=== PATIENT | female | born 1950 | race Caucasian/White ===

== ENCOUNTER → 2019-02-25 | Outpatient (CLI) | payer MEDICARE ==
--- NOTE | 2019-02-27 13:35 | P.ARTDOP ---
Arterial Doppler LOWER EXTREMITY ARTERIAL DOPPLER: DATE OF SERVICE: 02/25/2019 Reason for study: Bilateral leg pain. Doppler waveforms: Multiphasic bilaterally throughout. Pulse volume recording: []. Pressure gradients: None. Ankle-brachial indices: Greater than 1 bilaterally. Toe pressures: [] on the right, [] on the left Impression: Normal study.
== END | disposition home or self-care (01) ==
LOC: RADUSWWP 12:42
PROVIDERS: ATTEND Family Medicine
DX: M79.604 Pain in right leg (principal); M79.605 Pain in left leg; R29.898 Other symptoms and signs involving the musculoskeletal system
CPT/HCPCS: 93922

== ENCOUNTER 2020-02-11 11:04 | Emergency (ER) | payer MEDICARE, OTHER ==
[2020-02-11 11:11] VITALS: BP 160/84; PULSE 68; RESP 18; TEMP 97.6
--- NOTE | 2020-02-11 11:36 | ED ---
General Adult HPI - General Chief complaint: Extremity Injury, Lower Stated complaint: painful and swelling legs Source: patient, RN notes reviewed Mode of arrival: wheelchair Limitations: no limitations - History of Present Illness Initial comments: 69-year-old female presents to the emergency department for a chief complaint of right knee pain. Patient states that she fell about 4-6 weeks ago on the right knee and has had continued pain and swelling since that time. Patient states she called her doctor about this and they sent her to the emergency room. Patient is also complaining about bilateral leg pain. States this has been ongoing for over a year. States it worsens at night and she was given medicine for restless leg syndrome. States it also worsens when she goes for walks. Patient states she has an appointment in one week for this. Patient denies any difficulty walking. States that when she stands for prolonged times she has pain in both her legs. Denies back pain. Denies abdominal pain. Denies this worsening after her fall. Patient denies any bladder or bowel changes. Denies any numbness or tingling of the lower extremities. Denies weakness of the lower extremities, just complains of chronic pain. Patient has no other complaints at this time including shortness of breath, chest pain, abdominal pain, nausea or vomiting, headache, or visual changes. - Related Data Home Medications Medication Instructions Recorded Confirmed Citalopram Hydrobromide [CeleXA] 10 mg PO DAILY 02/07/15 02/07/15 Omeprazole [PriLOSEC] 20 mg PO AC-BID 02/07/15 02/07/15 Simvastatin [Zocor] 20 mg PO HS 02/07/15 02/07/15 rOPINIRole HCL 2.5 mg PO DAILY 02/07/15 02/07/15 Previous Rx's Medication Instructions Recorded Acetaminophen-Codeine 300-30mg 1 each PO Q4H PRN #20 tablet 02/07/15 [Tylenol w/codeine #3] Penicillin V Potassium [Pen Vee K] 500 mg PO QID #40 tab 02/07/15 Allergies Allergy/AdvReac Type Severity Reaction Status Date / Time No Known Allergies Allergy Verified 02/07/15 16:40 Review of Systems ROS Statement: Those systems with pertinent positive or pertinent negative responses have been documented in the HPI. ROS Other: All systems not noted in ROS Statement are negative. Past Medical History Past Medical History: Hyperlipidemia History of Any Multi-Drug Resistant Organisms: None Reported Past Surgical History: Adenoidectomy, Appendectomy, Tonsillectomy, Tubal Ligation Additional Past Surgical History / Comment(s): PMH; RESTLESS LEG SYNDROME. SURGICAL: OOPHERECTOMY Past Psychological History: Depression Smoking Status: Never smoker Past Alcohol Use History: None Reported Past Drug Use History: None Reported General Exam Limitations: no limitations General appearance: alert, in no apparent distress Head exam: Present: atraumatic, normocephalic, normal inspection Eye exam: Present: normal appearance, PERRL, EOMI. Absent: scleral icterus, conjunctival injection, periorbital swelling ENT exam: Present: normal exam, mucous membranes moist Neck exam: Present: normal inspection, full ROM. Absent: tenderness, meningismus, lymphadenopathy Respiratory exam: Present: normal lung sounds bilaterally. Absent: respiratory distress, wheezes, rales, rhonchi, stridor Cardiovascular Exam: Present: regular rate, normal rhythm, normal heart sounds. Absent: systolic murmur, diastolic murmur, rubs, gallop, clicks GI/Abdominal exam: Present: soft, normal bowel sounds. Absent: distended, tenderness, guarding, rebound, rigid Rectal exam: Present: normal inspection, normal rectal tone Extremities exam: Present: normal capillary refill (Capillary refill less than 2 seconds, DP pulse 2+ in the lower extremities bilaterally. Bilateral legs are warm to touch.), joint swelling (Patient has some mild edema of the anterior right knee. No edema elsewhere in the leg.), other (Strength is 5 out of 5 in lower extremities bilaterally.). Absent: calf tenderness Back exam: Present: full ROM. Absent: vertebral tenderness Neurological exam: Present: alert, oriented X3, normal gait (Patient ambulatory without difficulty). Absent: motor sensory deficit Psychiatric exam: Present: normal affect, normal mood Course Vital Signs 02/11/20 11:05 Temperature 97.6 F Pulse Rate 68 Respiratory 18 Rate Blood Pressure 160/84 O2 Sat by Pulse 100 Oximetry Medical Decision Making - Medical Decision Making HPI and physical exam is documented. Minimal edema of the right knee however no significant edema of the bilateral lower extremities. Neurovascular status intact in bilateral lower extremity. Patient does not have any difficulty walking. X-ray of the right knee shows no acute fracture or dislocation. I did contact radiology department and patient is to have an arterial ultrasound in 1 week. I did recommend that she keeps this appointment. I also recommended she follow up with orthopedics for possible lumbar MRI. She will return for any w orsening symptoms. Disposition Clinical Impression: Leg pain Disposition: HOME SELF-CARE Condition: Good Instructions (If sedation given, give patient instructions): Leg Pain (ED) Additional Instructions: Please attend your appointment on February 19. Follow-up with orthopedics for possible lumbar MRI. Follow-up with your doctor as well. If you have any sudden weakness of the legs, bladder or bowel changes, numbness or tingling in the saddle area, or fevers return immediately to the emergency department. Is patient prescribed a controlled substance at d/c from ED?: No Referrals: Jude Hernandez DO [Primary Care Provider] - 1-2 days Anna Marie Pinto DO [Doctor of Osteopathic Medicine] - 1-2 days Time of Disposition: 12:11
--- NOTE | 2020-02-11 11:53 | XR ---
EXAMINATION TYPE: XR knee 4V RT DATE OF EXAM: 02/11/2020 CLINICAL HISTORY: pain TECHNIQUE: Three views of the right knee are obtained. Patellar sunrise view also submitted. COMPARISON: None. FINDINGS: There is no acute fracture/dislocation. The tri-compartment joint spaces appear mildly na rrowed. The overlying soft tissue appears unremarkable. IMPRESSION: There is no acute fracture or dislocation.ICD 10 NO FRACTURE, INITIAL EVALUATION
== END 2020-02-11 12:20 | disposition home or self-care (01) ==
LOC: EC 11:04
DX: M79.605 Pain in left leg (principal); M79.606 Pain in leg, unspecified; M25.461 Effusion, right knee; F32.9 Major depressive disorder, single episode, unspecified; E78.5 Hyperlipidemia, unspecified; Z79.899 Other long term (current) drug therapy
CPT/HCPCS: 99283

== ENCOUNTER → 2020-02-20 | Outpatient (CLI) | payer MEDICARE, OTHER | END | disposition home or self-care (01) | LOC: RADUSWWP 08:16 | PROVIDERS: ATTEND Family Medicine | DX: M79.604 Pain in right leg (principal); M79.605 Pain in left leg | CPT/HCPCS: 93923 ==

== ENCOUNTER → 2020-10-21 | Outpatient (CLI) | payer MEDICARE, OTHER ==
--- NOTE | 2020-10-21 15:01 | BD ---
EXAMINATION TYPE: Axial Bone Density DATE OF EXAM: 10/21/2020 COMPARISON: NONE CLINICAL HISTORY: Height: 63.5 IN Weight: 202 LBS RISK FACTORS HISTORY OF: Active: YES Postmenopausal woman: YESAGE 57 MEDICATIONS: Thyroid Medications: YES Which medication: Levothyroxine How Lon+ YEARS Additional Medications: CALCIUM, VIT D, LEVOTHYROXINE,ROPINEROL, ANTI DEPRESSANT EXAM MEASUREMENTS: Bone mineral densitometry was performed using the [employer]. Bone mineral density as measured about the Lumbar spine is: ----- L1-L4(G/cm2): 1.129 T Score Values are as follows: ----- L2: -1.6 ----- L3: 0.7 ----- L4: 1.2 ----- L1-L4: 0.4 Bone mineral density BASELINE Bone mineral density about the R hip (g/cm2): 1.020 Bone mineral density about the L hip (g/cm2): 1.007 T Score values are as follows: -----R Neck: -0.1 -----L Neck: -0.2 -----R Total: -0.4 -----L Total: -0.1 Bone mineral density BASELINE IMPRESSION: Osteopenia present at 2 consecutive levels in the lumbar spine. (T Score between -2.5 and -1). There is slightly increased risk of fracture and the patient may be considered for treatment. Re-Screen 2-5 years. NOTE: T-SCORE=SD OF THE YOUNG ADULT MEAN.
--- NOTE | 2020-10-22 09:09 | MM ---
Reason for exam: screening (asymptomatic). Last mammogram was performed 12 years and 5 months ago. History: Patient is postmenopausal. Physical Findings: A clinical breast exam by your physician is recommended on an annual basis and results should be correlated with mammographic findings. MG 3D Screening Mammo W/Cad Bilateral CC and MLO view(s) were taken. Prior study comparison: May 12, 2008, bilateral digital screening mammogram. There are scattered fibroglandular densities. Finding #1: There is a 10 mm mass in the subareolar position of the right breast on MLO . Finding #2: There are typically benign vascular calcifications in both breasts. Finding #3: There are round, linear calcifications in the right breast. New finding since May 12, 2008. ASSESSMENT: Incomplete: need additional imaging evaluation, BI-RAD 0 RECOMMENDATION: Special view mammogram and ultrasound of the right breast. [facility] will attempt to contact patient to return for supplemental views and ultrasound.
== END | disposition home or self-care (01) ==
LOC: RADMAMWWP 13:38
PROVIDERS: ATTEND Family Medicine
DX: Z12.31 Encounter for screening mammogram for malignant neoplasm of breast (principal); M85.88 Other specified disorders of bone density and structure, other site; E55.9 Vitamin D deficiency, unspecified
CPT/HCPCS: 77063; 77067; 77080

== ENCOUNTER → 2020-10-27 | Outpatient (CLI) | payer MEDICARE, OTHER ==
--- NOTE | 2020-10-28 09:55 | MM ---
Reason for exam: additional evaluation requested from abnormal screening. Last mammogram was performed less than 1 month ago. History: Patient is postmenopausal. Physical Findings: Nurse Summary: 0.5 x 1cm nodule in th right breast at 9 o'clock/subareolar (nurse ts). MG 3D Work Up W/Cad RT Spot compression CC, spot compression MLO, and ML view(s) were taken of the right breast. Prior study comparison: October 21, 2020, bilateral MG 3d screening mammo w/cad. May 12, 2008, bilateral digital screening mammogram. There are scattered fibroglandular densities. There is no discrete abnormality. These results were verbally communicated with the patient and result sheet given to the patient on 10/27/20. ASSESSMENT: Benign, BI-RAD 2 RECOMMENDATION: Return to routine screening mammogram schedule for both breasts.
--- NOTE | 2020-10-28 10:01 | USB ---
Reason for exam: additional evaluation requested from abnormal screening. History: Patient is postmenopausal. US Breast Workup Limited RT Right limited breast ultrasound including focal area of concern, retroareolar and axilla demonstrates no cystic or solid lesion seen. These results were verbally communicated with the patient and result sheet given to the patient on 10/27/20. ASSESSMENT: Negative, BI-RAD 1 RECOMMENDATION: Return to routine screening mammogram schedule for both breasts.
== END | disposition home or self-care (01) ==
LOC: RADMAMWWP 13:26
PROVIDERS: ATTEND Family Medicine
DX: R92.8 Other abnormal and inconclusive findings on diagnostic imaging of breast (principal)
CPT/HCPCS: 77065; 76642; G0279; 77061

== ENCOUNTER → 2022-04-14 | Outpatient (CLI) | payer MEDICARE ==
--- NOTE | 2022-04-15 15:47 | MM ---
Reason for Exam: Screening (asymptomatic). Last mammogram was performed 1 year(s) and 6 month(s) ago. Patient History: Menarche at age 9. First Full-Term at age 17. Hysterectomy at age 21. Postmenopausal. Risk Values: April 5 year model risk: 1.4%. NCI Lifetime model risk: 3.6%. Prior Study Comparison: 05/12/2008 Bilateral Screening Mammogram, [facility]. 10/21/2020 Bilateral Screening Mammogram, [facility]. 10/27/2020 Right Diagnostic Mammogram, [facility]. Tissue Density: There are scattered fibroglandular densities. Findings: Analyzed By CAD. Benign vascular calcifications are redemonstrated. Focal asymmetry 2:00 right breast at a middle depth appears more defined and incompletely disperses on 3-D images. Further evaluation recommended. Otherwise, no significant change. Overall Assessment: Incomplete: need additional imaging evaluation, BI-RAD 0 Management: Special View Mammogram of the right breast. 1. Additional views right breast to include spot 3-D CC, spot 3-D MLO, and 3-D LM views. 2. Targeted right breast ultrasound if any persisting abnormality. Electronically signed and approved by: Parmjit García M.D. Radiologist
== END | disposition home or self-care (01) ==
LOC: RADMAMWWP 12:51
PROVIDERS: ATTEND Family Medicine
DX: Z12.31 Encounter for screening mammogram for malignant neoplasm of breast (principal)
CPT/HCPCS: 77063; 77067

== ENCOUNTER → 2022-04-20 | Outpatient (CLI) | payer MEDICARE ==
--- NOTE | 2022-04-20 15:31 | MM ---
Reason for Exam: Additional evaluation requested from abnormal screening. Last screening mammogram was performed less than 1 month ago. Patient History: Menarche at age 9. First Full-Term at age 17. Hysterectomy at age 21. Postmenopausal. Risk Values: April 5 year model risk: 1.4%. NCI Lifetime model risk: 3.6%. Prior Study Comparison: 04/03/2007 Screening Mammogram, [facility]. 05/12/2008 Bilateral Screening Mammogram, [facility]. 10/21/2020 Bilateral Screening Mammogram, [facility]. 10/27/2020 Right Diagnostic Mammogram, [facility]. 10/27/2020 Right Diagnostic Ultrasound, [facility]. 04/14/2022 Bilateral MG 3D screening mammo w/cad, [facility]. Tissue Density: Right: The breast tissue is heterogeneously dense. This may lower the sensitivity of mammography. Findings: Analyzed By CAD. Focal asymmetry in the middle depth inner aspect does not go away on additional spot CC views but not clearly seen on spot MLO and true lateral tomogram images. Overall Assessment: Incomplete: need additional imaging evaluation, BI-RAD 0 Management: Diagnostic Breast Ultrasound of the right breast. Targeted ultrasound follow-up. Results were given to the patient verbally at the time of exam. Electronically signed and approved by: Brat Hodges M.D.
--- NOTE | 2022-04-21 11:21 | USB ---
Reason for Exam: Additional evaluation requested from abnormal screening. Patient History: Menarche at age 9. First Full-Term at age 17. Hysterectomy at age 21. Postmenopausal. Risk Values: April 5 year model risk: 1.4%. NCI Lifetime model risk: 3.6%. Technique: Method: Targeted. Prior Study Comparison: 10/21/2020 Bilateral Screening Mammogram, [facility]. 10/27/2020 Right Diagnostic Mammogram, [facility]. 04/14/2022 Bilateral MG 3D screening mammo w/cad, [facility]. Findings: The upper section of the breast of the right breast and the axilla of the right breast were scanned. At 1:00 position 6 cm distance from nipple there is 7 x 6 x 4 mm vague hypoechoic area with some shadowing and superficial vascularity may correspond to area of mammogram concern. Overall Assessment: Suspicious, BI-RAD 4 Management: Ultrasound Core Biopsy of the right breast. Patient made aware of results and recommendation at time of dictation. Electronically signed and approved by: Bart Hodges M.D.
== END | disposition home or self-care (01) ==
LOC: RADMAMWWP 14:55
PROVIDERS: ATTEND Family Medicine
DX: R92.8 Other abnormal and inconclusive findings on diagnostic imaging of breast (principal)
CPT/HCPCS: 77065; 76642; G0279; 77061

== ENCOUNTER → 2022-05-16 | Day surgery (SDC) | payer MEDICARE ==
--- NOTE | 2022-05-20 15:50 | USB ---
Risk Values: April 5 year model risk: 1.4%. NCI Lifetime model risk: 3.6%. Pathology Description: Location: 1 o'clock. Marker Left Behind. Needle Type: Mammotome Cores: 3 Skin Nicks: 1 Gauge: 13 The procedure of ultrasound guided core biopsy was explained to the patient. Benefits, alternatives, and risks were discussed. An informed consent was then obtained. A timeout was performed. The patient was placed in supine positioning for imaging and for the procedure. The overlying skin was prepped and draped in usual sterile fashion. Lidocaine was used as anesthetic into the skin and subcutaneous tissue up to area of concern in the right breast. A small skin bhavana was made with surgical scalpel. Under ultrasound guidance, a 12-gauge vacuum assisted biopsy gun device was used to obtain 3 core samples. There was a large vessel just superior to the biopsy site. Additional sampling was deferred at this time. A biopsy clip was left in lesion. Hydromark core marker was placed. The patient tolerated the procedure well without any immediate complication. The patient was kept in the radiology department for short stay after the procedure and then discharged home in stable condition. Postprocedure mammogram: The patient was transferred to mammography for physician ordered post procedure mammogram for clip placement verification. Impression: Successful ultrasound guided core biopsy of area of concern in the right breast, full pathology results to follow. Recommendations: 1. Recommendations are pending pathology results. Pathology Results: Result: High risk. RIGHT BREAST, 1:00, ULTRASOUND GUIDED NEEDLE CORE BIOPSY: Benign breast with fibrosis/scar. Detached clusters of benign ductal epithelial cells with micropapillary architecture, cannot completely exclude a papillary lesion versus usual type ductal hyperplasia. See note. Tissue Density: Right: There are scattered fibroglandular densities. Overall Assessment: High risk Assessment: MG diagnostic mammo RT wo CAD - Right: Suspicious, BI-RAD 4. Management: Surgical Consultation of the right breast. Recommend needle loc and excision. Electronically signed and approved by: Jcaky Freeman D.O. Radiologis
== END ==
LOC: RADUSWWP 12:27
PROVIDERS: ATTEND Surgery
DX: N60.31 Fibrosclerosis of right breast (principal); R92.8 Other abnormal and inconclusive findings on diagnostic imaging of breast
CPT/HCPCS: 88305; 77065; 19083; A4648

== ENCOUNTER 2022-08-15 06:41 | Day surgery (SDC) | payer MEDICARE ==
[2022-08-12 08:57] VITALS: BMI 32.4
[~2022-08-15 06:41] MED LIST: Pre Op ABX Message 1 EACH MISC MISCELLANE ONE
[2022-08-15] MEDS ORDERED: HYDROmorphone 0.5 MG/0.5 ML SYRINGE IVP PRN (07:07)
[2022-08-15] MEDS ORDERED: LACTATED RINGERS 1,000 ML IV SCH (07:07)
[2022-08-15] MEDS ORDERED: ONDANSETRON 4 MG/2 ML VIAL IVP ONE ×2 (07:07→08:51)
[2022-08-15] MEDS ORDERED: MIDAZOLAM 2 MG/2 ML VIAL IV PRN (07:07)
[2022-08-15] MEDS ORDERED: DEXAMETHASONE SOD PHOSPHATE 4 MG/ML 1 ML VIAL IV ONE (07:07)
[2022-08-15] MEDS ORDERED: LACTATED RINGERS 1,000 ML IV ONE ×2 (07:20)
[2022-08-15] MEDS ORDERED: LIDOCAINE 1% INJ 10MG/ML (30 ML VIAL-PF) SQ ONE (08:31)
[2022-08-15] MEDS ORDERED: HEPARIN SODIUM,PORCINE/PF 5,000 UNIT/0.5 ML SYRINGE SQ ONE (08:46)
[2022-08-15] MEDS ORDERED: DEXAMETHASONE SOD PHOSPHATE 4 MG/ML 1 ML VIAL IVP ONE (08:51)
[2022-08-15] MEDS ORDERED: PROPOFOL 10 MG/ML 20 ML VIAL IV ONE (08:57)
[2022-08-15] MEDS ORDERED: LIDOCAINE 4% LTA KIT (4 ML) TOPICAL ONE (08:57)
[2022-08-15] MEDS ORDERED: fentaNYL (PF) 50 MCG/ML 2 ML AMP ONE (08:57)
[2022-08-15] MEDS ORDERED: ePHEDrine 50 MG/ML 1 ML VIAL ONE (08:57)
[2022-08-15] MEDS ORDERED: MIDAZOLAM 2 MG/2 ML VIAL ONE (08:57)
[2022-08-15] MEDS ORDERED: SUCCINYLCHOLINE CHLORIDE 200 MG/10 ML VIAL IV ONE (08:57)
[2022-08-15] MEDS ORDERED: LIDOCAINE 2% INJ 20 MG/ML (2 ML VIAL) ONE (08:57)
--- NOTE | 2022-08-15 09:09 | P.GSHP ---
History of Present Illness H&P Date: 08/15/22 The patient underwent a core biopsy showing some cells concerning for a papillary lesion in the breast for which an excisional biopsy was recommended Past Medical History Past Medical History: GERD/Reflux, Hearing Disorder / Deafness, Hyperlipidemia, Thyroid Disorder Additional Past Medical History / Comment(s): Restless Leg Syndrome. Hard of hearing right ear. History of Any Multi-Drug Resistant Organisms: None Reported Past Surgical History: Adenoidectomy, Appendectomy, Orthopedic Surgery, Tonsillectomy, Tubal Ligation Additional Past Surgical History / Comment(s): Right knee surgery, oophorectomy. Past Anesthesia/Blood Transfusion Reactions: No Reported Reaction Past Psychological History: Depression Smoking Status: Never smoker Past Alcohol Use History: None Reported Past Drug Use History: None Reported - Past Family History Mother Family Medical History: Cancer Additional Family Medical History / Comment(s): Kidney cancer. Medications and Allergies Home Medications Medication Instructions Recorded Confirmed Type Omeprazole [PriLOSEC] 20 mg PO BID 02/07/15 08/15/22 History Simvastatin [Zocor] 20 mg PO DAILY 02/07/15 08/15/22 History Cholecalciferol [Vitamin D3 (25 25 mcg PO BID 08/12/22 08/15/22 History Mcg = 1000 Iu)] Citalopram Hydrobromide 20 mg PO BID 08/12/22 08/15/22 History [Citalopram HBr] Levothyroxine Sodium 88 mcg PO QAM 08/12/22 08/15/22 History Vitamin C/Biotin [Hair, Skin and 1 tab PO DAILY 08/12/22 08/15/22 History Nails Chew] rOPINIRole HCL [Requip] 1 mg PO HS 08/12/22 08/15/22 History Allergies Allergy/AdvReac Type Severity Reaction Status Date / Time No Known Allergies Allergy Verified 08/15/22 07:28 Surgical - Exam Osteopathic Statement: *. No significant issues noted on an osteopathic structural exam other than those noted in the History and Physical/Consult. Vital Signs Temp Pulse Resp BP Pulse Ox 97.9 F 70 16 148/67 96 08/15/22 07:21 08/15/22 07:21 08/15/22 07:21 08/15/22 07:21 08/15/22 07:21 - General well developed, well nourished, no distress - Neck trachea midline - Respiratory normal expansion, normal respiratory effort - Cardiovascular Rhythm: regular (Localizing needle in place in the breast) Assessment and Plan (1) Abnormal breast biopsy Current Visit: Yes Status: Acute Code(s): R89.7 - ABNORMAL HISTOLOG FINDINGS IN SPECIMENS FROM OTH ORG/TISS SNOMED Code(s): 874054663 Plan: Needle localized excisional breast biopsy. The procedure, risks and complications were discussed. Questions were encouraged and answered.
[2022-08-15] MEDS ORDERED: SODIUM CHLORIDE 0.9% 50 ML with ceFAZolin 2,000 MG IV ONE ×2 (09:19)
[2022-08-15] MEDS ORDERED: LIDOCAINE 1%-EPI 1:100,000 20 ML VIAL SQ ONE ×2 (09:23)
[2022-08-15] MEDS ORDERED: BUPIVACAINE (PF) 0.25% 30 ML VIAL SQ ONE ×2 (09:23)
--- NOTE | 2022-08-15 09:58 | P.OP ---
Date of Procedure: 08/15/22 Preoperative Diagnosis: Abnormal ultrasound and breast biopsy of the right breast Postoperative Diagnosis: Abnormal ultrasound and breast biopsy the right breast Procedure(s) Performed: Needle localized breast biopsy Anesthesia: ISABELLE Surgeon: Neda Rossi Estimated Blood Loss (ml): 5 Pathology: other Condition: stable Disposition: PACU Indications for Procedure: The patient had had a mammogram and ultrasound showing atypical air in the right breast. A ultrasound core was done showing a possible papillary lesion. Operative Findings: The localizing wire and clip were noted to be in the specimen Description of Procedure: Patient's taken the OR where she is prepped and draped in the usual sterile manner under general endotracheal anesthetic. Local anesthetic is instilled into the skin and breast tissue. A skin incision was made. Dissection was carried down to the localizing wire. The needle was withdrawn. The guidewire was brought up through the incision. The tissue around the end of the guidewire is then sharply excised. The specimen was tagged and sent for specimen mammography. Small bleeding points were controlled with electrocautery. The skin was closed with 4-0 Vicryl in a subcuticular manner. Steri-Strips and dressing were applied. She tolerated the procedure without difficulty and was taken recovery room in satisfactory condition. According to or personnel, WERE correct. Plan - Discharge Summary Discharge Rx Participant: No New Discharge Prescriptions: New traMADol HCL 1 - 2 tab PO Q6HR PRN #15 tablet PRN Reason: Pain No Action Simvastatin [Zocor] 20 mg PO DAILY Omeprazole [PriLOSEC] 20 mg PO BID Vitamin C/Biotin [Hair, Skin and Nails Chew] 1 tab PO DAILY Levothyroxine Sodium 88 mcg PO QAM Citalopram Hydrobromide [Citalopram HBr] 20 mg PO BID Cholecalciferol [Vitamin D3 (25 Mcg = 1000 Iu)] 25 mcg PO BID rOPINIRole HCL [Requip] 1 mg PO HS Discharge Medication List Omeprazole [PriLOSEC] 20 mg PO BID 02/07/15 [History] Simvastatin [Zocor] 20 mg PO DAILY 02/07/15 [History] Cholecalciferol [Vitamin D3 (25 Mcg = 1000 Iu)] 25 mcg PO BID 08/12/22 [History] Citalopram Hydrobromide [Citalopram HBr] 20 mg PO BID 08/12/22 [History] Levothyroxine Sodium 88 mcg PO QAM 08/12/22 [History] Vitamin C/Biotin [Hair, Skin and Nails Chew] 1 tab PO DAILY 08/12/22 [History] rOPINIRole HCL [Requip] 1 mg PO HS 08/12/22 [History] traMADol HCL 1 - 2 tab PO Q6HR PRN #15 tablet 08/15/22 [Rx] Activity/Diet/Wound Care/Special Instructions: Ice to the incision for 24 hours. Wear a while supporting bra. Leave the dressing on until Monday. On Monday the dressing may be in you may shower. Expect some bruising. Call with questions or concerns Discharge Disposition: HOME SELF-CARE
--- NOTE | 2022-08-15 10:00 | USB ---
Risk Values: April 5 year model risk: 1.7%. NCI Lifetime model risk: 4.1%. Prior Study Comparison: 04/14/2022 Bilateral MG 3D screening mammo w/cad, [facility]. 04/20/2022 Right MG 3D work up w/cad RT, [facility]. 05/16/2022 Right MG diagnostic mammo RT wo CAD, [facility]. Pathology Description: Location: 1 o'clock. Needle Type: 5 cm [place] Pathology Results: Results pending. Management: Needle Localization of the right breast. Electronically signed and approved by: Christofer Pizano D.O.
[2022-08-15 10:02] VITALS: TEMP 97
--- NOTE | 2022-08-15 10:29 | MM ---
Risk Values: April 5 year model risk: 2.1%. NCI Lifetime model risk: 5.1%. Management: Needle Localization of the right breast. Electronically signed and approved by: Christofer Pizano D.O.
[2022-08-15 10:43] VITALS: RESP 15
[2022-08-15 11:01] VITALS: BP 155/84; PULSE 76
== END 2022-08-15 11:27 | disposition home or self-care (01) ==
LOC: OR 06:41
PROVIDERS: ATTEND Surgery
DX: R92.8 Other abnormal and inconclusive findings on diagnostic imaging of breast (principal); K21.9 Gastro-esophageal reflux disease without esophagitis; E78.5 Hyperlipidemia, unspecified; H91.90 Unspecified hearing loss, unspecified ear; F32.A Depression, unspecified; E07.9 Disorder of thyroid, unspecified; G25.81 Restless legs syndrome; Z90.89 Acquired absence of other organs; Z90.49 Acquired absence of other specified parts of digestive tract; Z98.890 Other specified postprocedural states; Z98.51 Tubal ligation status; Z80.51 Family history of malignant neoplasm of kidney; Z79.890 Hormone replacement therapy; Z79.1 Long term (current) use of non-steroidal anti-inflammatories (NSAID); Z79.899 Other long term (current) drug therapy
CPT/HCPCS: 76098; 19285; C1819; J2250; J0330; J1100; J2405; J0690; J2001 ×2; J3010; J2704

== ENCOUNTER → 2022-10-24 | Outpatient (CLI) | payer MEDICARE ==
--- NOTE | 2022-10-24 12:15 | BD ---
EXAMINATION TYPE: Axial Bone Density DATE OF EXAM: 10/24/2022 COMPARISON: 10.21.2020 CLINICAL HISTORY: 72 years year old Female. ICD-10 CODE: C50.211 breast cancer Height: 63.3 Weight: 199 FRAX RISK QUESTIONS: Family History (Parent hip fracture): YES RISK FACTORS HISTORY OF: Family History of Osteoporosis: YES, MOTHER HIP FX AND REPAIR Postmenopausal woman: YES, 57 YRS OLD Hyperparathyroidism: NO Adrenal Insufficiency: NO MEDICATIONS: Thyroid Medications: YES, SYNTHROID FOR ABOUT 4 YRS Additional Medications: ROPINEROL..ANTIDEPRESSANT, CALCIUM, VIT D, REFLUX, STATIN FOR CHOLESTEROL, HX OF RADIATION FOR RT BREAST CANCER, Additional History: HX OF RT BR CA...RADIATION TREATMENT, RT PATELLAR REPLACEMENT, REFLUX, CHOLESTERO L, ANXIETY, EXAM MEASUREMENTS: Bone mineral densitometry was performed using the [email or web address] System. Bone mineral density as measured about the Lumbar spine is: ----- L1-L4(G/cm2): 1.020 T Score Values are as follows: ----- L1: -1.8 ----- L2: -2.2 ----- L3: -1.1 ----- L4: 0.0 ----- L1-L4: -1.3 Bone mineral density has: Decreased -9.7% since study of: 10.21.2020 Bone mineral density about the R hip (g/cm2): 0.888 Bone mineral density about the L hip (g/cm2): 1.023 T Score values are as follows: -----R Neck: -0.7 -----L Neck: -0.1 -----R Total: -1.0 -----L Total: 0.1 Bone mineral density has: Decreased -1.8% since study of: 10.21.2020 FRAX%s: The graph provided illustrates a 11.9% chance for a major osteoporotic fx and a 2.8% chance f or the hips probability for fx in 10 years time. IMPRESSION: Osteopenia (T Score between -2.5 and -1). There is slightly increased risk of fracture and the patient may be considered for treatment. Re-Screen 2-5 years. NOTE: T-SCORE=SD OF THE YOUNG ADULT MEAN.
== END | disposition home or self-care (01) ==
LOC: RADBDWWP 10:22
PROVIDERS: ATTEND Internal Medicine Hematology & Oncology
DX: C50.211 Malignant neoplasm of upper-inner quadrant of right female breast (principal); M85.89 Other specified disorders of bone density and structure, multiple sites; F41.9 Anxiety disorder, unspecified; Z85.3 Personal history of malignant neoplasm of breast
CPT/HCPCS: 77080

== ENCOUNTER → 2023-04-17 | Outpatient (CLI) | payer MEDICARE ==
--- NOTE | 2023-04-17 14:05 | MM ---
Reason for Exam: Hx of breast cancer, conservation therapy. Last screening mammogram was performed 12 month(s) ago. Patient History: Menarche at age 9. First Full-Term at age 17. Hysterectomy at age 21. Postmenopausal. Breast cancer, right, age 72. 08/15/2022, Lumpectomy on the Right side. 08/15/2022, Malignant US breast localization RT on the right side. 05/16/2022, High risk US biopsy breast VAD RT on the right side. Prior Study Comparison: 10/21/2020 Bilateral Screening Mammogram, [facility]. 10/27/2020 Right Diagnostic Mammogram, [facility]. 10/27/2020 Right Diagnostic Ultrasound, [facility]. 04/14/2022 Bilateral MG 3D screening mammo w/cad, [facility]. 04/20/2022 Right US breast workup limited RT, [facility]. 04/20/2022 Right MG 3D work up w/cad RT, [facility]. 05/16/2022 Right MG diagnostic mammo RT wo CAD, [facility]. Tissue Density: The breast tissue is heterogeneously dense. This may lower the sensitivity of mammography. Findings: Analyzed By CAD. Postlumpectomy and radiation therapy changes right breast. No recurrent or residual mass. No masses within the left breast. Benign calcifications persists bilaterally. Overall Assessment: Benign, BI-RAD 2 Management: Diagnostic Mammogram of both breasts in 1 year. . Results were given to the patient verbally at the time of exam. Patient should continue monthly self-breast exams. A clinical breast exam by your physician is recommended on an annual basis. This exam should not preclude additional follow-up of suspicious palpable abnormalities. Note on April scores and lifetime risk: 1. A April score greater than 3% is considered moderate risk. If this is the case, consider specialist referral to assess eligibility for a risk reducing agent. 2. If overall lifetime risk for the development of breast cancer is 20% or higher, the patient may qualify for future screening with alternating mammogram and breast MRI. Electronically signed and approved by: Rodney Marroquin M.D. Radiologis
== END | disposition home or self-care (01) ==
LOC: RADMAMWWP 13:36
PROVIDERS: ATTEND Radiology Radiation Oncology
DX: C50.211 Malignant neoplasm of upper-inner quadrant of right female breast (principal); Z78.0 Asymptomatic menopausal state; Z85.3 Personal history of malignant neoplasm of breast
CPT/HCPCS: 77066; G0279; 77062

== ENCOUNTER → 2024-04-18 | Outpatient (CLI) | payer MEDICARE ==
--- NOTE | 2024-04-18 14:04 | MM ---
Reason for Exam: Follow-up at short interval from prior study. Last screening mammogram was performed 12 month(s) ago. Patient History: Menarche at age 9. First Full-Term at age 17. Hysterectomy at age 21. Postmenopausal. Breast cancer, right, age 72. Previous chest radiation therapy at age 71. 08/15/2022, Lumpectomy on the Right side. 08/15/2022, Malignant US breast localization RT on the right side. 05/16/2022, High risk US biopsy breast VAD RT on the right side. Prior Study Comparison: 04/14/2022 Bilateral MG 3D screening mammo w/cad, [facility]. 04/20/2022 Right US breast workup limited RT, [facility]. 04/20/2022 Right MG 3D work up w/cad RT, [facility]. 05/16/2022 Right MG diagnostic mammo RT wo CAD, [facility]. 04/17/2023 Bilateral MG 3D diag mammo w/cad GM, [facility]. Tissue Density: There are scattered areas of fibroglandular density. Findings: Analyzed By CAD. The pattern is symmetrical. There is increasing distortion at the previous biopsy site was may be normal maturation. Short-term follow-up of the right breast is recommended. Left breast:No suspicious groups of microcalcifications, spiculated or lobular masses, architectural distortion or other secondary signs of malignancy are mammographically apparent. Overall Assessment: Probably benign, BI-RAD 3 Management: Diagnostic Mammogram of the right breast in 6 months. A negative mammogram report should not preclude additional follow up of suspicious palpable abnormalities. Patient should continue monthly self breast exam. A clinical breast exam by your physician is recommended on an annual basis and results should be correlated with mammographic findings. Note on April scores and lifetime risk: 1. A April score greater than 3% is considered moderate risk. If this is the case, consider specialist referral to assess eligibility for a risk reducing agent. 2. If overall lifetime risk for the development of breast cancer is 20% or higher, the patient may qualify for future screening with alternating mammogram and breast MRI. Electronically signed and approved by: Jacky Freeman D.O. Radiologis
== END | disposition home or self-care (01) ==
LOC: RADMAMWWP 12:43
PROVIDERS: ATTEND Radiology Radiation Oncology
DX: C50.211 Malignant neoplasm of upper-inner quadrant of right female breast (principal); R92.323 Mammographic fibroglandular density, bilateral breasts; Z78.0 Asymptomatic menopausal state; Z17.0 Estrogen receptor positive status [ER+]
CPT/HCPCS: 77066; G0279; 77062

== ENCOUNTER → 2024-10-24 | Outpatient (CLI) | payer MEDICARE ==
--- NOTE | 2024-10-24 12:55 | MM ---
Reason for Exam: Hx of breast cancer, conservation therapy. Last screening mammogram was performed 6 month(s) ago. Patient History: Menarche at age 9. First Full-Term at age 17. Hysterectomy at age 21. Postmenopausal. Breast cancer, right, age 72. Previous chest radiation therapy at age 71. 08/15/2022, Lumpectomy on the Right side. 08/15/2022, Malignant US breast localization RT on the right side. 05/16/2022, High risk US biopsy breast VAD RT on the right side. Prior Study Comparison: 05/16/2022 Right MG diagnostic mammo RT wo CAD, [facility]. 04/17/2023 Bilateral MG 3D diag mammo w/cad GM, [facility]. 04/18/2024 Bilateral MG 3D diag mammo w/cad GM, [facility]. Tissue Density: Right: The breasts are heterogeneously dense, which may obscure small masses. Findings: Analyzed By CAD. Post treatment changes medial aspect right breast are redemonstrated. Benign-appearing vascular calcification is again seen. No suspicious new mass or worrisome cluster of microcalcification in the right breast. Overall Assessment: Benign, BI-RAD 2 Management: Diagnostic Mammogram of both breasts in 6 months. Back on schedule. Results were given to the patient verbally at the time of exam. Patient should continue monthly self-breast exams. A clinical breast exam by your physician is recommended on an annual basis. This exam should not preclude additional follow-up of suspicious palpable abnormalities. Note on April scores and lifetime risk: 1. A April score greater than 3% is considered moderate risk. If this is the case, consider specialist referral to assess eligibility for a risk reducing agent. 2. If overall lifetime risk for the development of breast cancer is 20% or higher, the patient may qualify for future screening with alternating mammogram and breast MRI. [facility], , 10/24/2024 12:51 PM. Electronically signed and approved by: Bart Hodges M.D.
== END | disposition home or self-care (01) ==
LOC: RADMAMWWP 08:52
PROVIDERS: ATTEND Radiology Radiation Oncology
DX: C50.211 Malignant neoplasm of upper-inner quadrant of right female breast (principal); R92.333 Mammographic heterogeneous density, bilateral breasts; Z78.0 Asymptomatic menopausal state; Z85.3 Personal history of malignant neoplasm of breast
CPT/HCPCS: 77065; G0279; 77061